=== PATIENT | male | born 1990 | race Caucasian/White ===

== ENCOUNTER 2019-06-18 00:30 | Inpatient (IN) | payer MEDICAID, OTHER ==
--- NOTE | 2019-06-18 01:08 | ED ---
Psych HPI - General Chief Complaint: Psychiatric Symptoms Stated Complaint: Mental Health Time Seen by Provider: 06/18/19 01:07 Source: patient, RN notes reviewed, old records reviewed Mode of arrival: ambulatory - History of Present Illness Initial Comments: This is a 29-year-old male DF for psychiatric evaluation patient's going to difficult time recently new to the area and presented for psychiatric evaluation today. Patient was cutting secondary severe depression. Does admit to actual acute psychiatric illness patient states he is off medication as he just moved here and is unable to see DrMallory secondary to coronavirus, history of psychiatric illness but does not take psychiatric medications currently MD Complaint: suicidal ideation, feels depressed -: unknown Associated Psychiatric Symptoms: depression, suicidal ideation, racing thoughts History of same: Yes Quality: intermittent, getting worse Improves With: medication, therapy Worsens With: none Context: not taking psychiatric medications Associated Symptoms: denies other symptoms Treatments Prior to Arrival: placed on mental health hold If Self Harm: admits thoughts of self harm - Related Data Previous Rx's Medication Instructions Recorded Albuterol Inhaler [Ventolin Hfa 2 puff INHALATION RT-QID PRN puff 06/22/19 Inhaler] Paliperidone [Invega] 3 mg PO DAILY #30 tab.er.24 06/22/19 Topiramate [Topamax] 25 mg PO DAILY #30 tab 06/22/19 Allergies Allergy/AdvReac Type Severity Reaction Status Date / Time bee venom protein (honey bee) Allergy Anaphylaxis Verified 06/18/19 08:30 olive extract Allergy Anaphylaxis Verified 06/18/19 08:30 mirtazapine [From Remeron] AdvReac Mild Unknown Verified 06/18/19 08:30 olanzapine [From Zyprexa] AdvReac Mild Unknown Verified 06/18/19 08:30 lithium AdvReac Hallucinati Verified 06/18/19 08:30 ons prednisone AdvReac Unknown Verified 06/18/19 08:30 Review of Systems ROS Statement: Those systems with pertinent positive or pertinent negative responses have been documented in the HPI. ROS Other: All systems not noted in ROS Statement are negative. Past Medical History Past Medical History: Asthma History of Any Multi-Drug Resistant Organisms: None Reported Past Surgical History: Appendectomy Smoking Status: Never smoker Past Alcohol Use History: None Reported Past Drug Use History: None Reported General Exam Limitations: no limitations General appearance: alert, in no apparent distress Head exam: Present: atraumatic, normocephalic, normal inspection Eye exam: Present: normal appearance, PERRL, EOMI. Absent: scleral icterus, conjunctival injection, periorbital swelling ENT exam: Present: normal exam, mucous membranes moist Neck exam: Present: normal inspection. Absent: tenderness, meningismus, lymphadenopathy Respiratory exam: Present: normal lung sounds bilaterally. Absent: respiratory distress, wheezes, rales, rhonchi, stridor Cardiovascular Exam: Present: regular rate, normal rhythm, normal heart sounds. Absent: systolic murmur, diastolic murmur, rubs, gallop, clicks GI/Abdominal exam: Present: soft, normal bowel sounds. Absent: distended, tenderness, guarding, rebound, rigid Extremities exam: Present: normal inspection, full ROM, normal capillary refill. Absent: tenderness, pedal edema, joint swelling, calf tenderness Back exam: Present: normal inspection Neurological exam: Present: alert, oriented X3, CN II-XII intact Psychiatric exam: Present: normal affect, normal mood Skin exam: Present: warm, dry, intact, normal color. Absent: rash Course Vital Signs 06/18/19 06/18/19 00:35 07:41 Temperature 97.8 F Pulse Rate 114 H 86 Respiratory 20 16 Rate Blood Pressure 157/113 137/83 O2 Sat by Pulse 99 99 Oximetry - Reevaluation(s) Reevaluation #1: Medical record is reviewed Patient was made medically clear for psychiatric evaluation Medical Decision Making - Medical Decision Making 29 male to the ER seen and evaluated by psychiatry here in the ER. Patient does have a consistent a changing story but does have underlying psychiatric illness will be admitted for psychiatric evaluation and treatment - Lab Data Result diagrams: 06/19/19 06:29 06/19/19 06:29 Lab Results 06/18/19 Range/Units 00:52 Urine Opiates Screen Not Detected (NotDetected) Ur Oxycodone Screen Not Detected (NotDetected) Urine Methadone Screen Not Detected (NotDetected) Ur Propoxyphene Screen Not Detected (NotDetected) Ur Barbiturates Screen Not Detected (NotDetected) U Tricyclic Antidepress Detected H (NotDetected) Ur Phencyclidine Scrn Not Detected (NotDetected) Ur Amphetamines Screen Not Detected (NotDetected) U Methamphetamines Scrn Detected H (NotDetected) U Benzodiazepines Scrn Not Detected (NotDetected) Urine Cocaine Screen Not Detected (NotDetected) U Marijuana (THC) Screen Not Detected (NotDetected) Disposition Clinical Impression: Depression, Suicidal ideation Disposition: ADMITTED IP TO [facility] Condition: Good Is patient prescribed a controlled substance at d/c from ED?: No
[2019-06-18 01:26] LABS: Amphetamine Screen,Urine Not Detected (NotDetected); Barbiturate Screen,Urine Not Detected (NotDetected); Benzodiazepines Screen,Urine Not Detected (NotDetected); Cocaine Screen,Urine Not Detected (NotDetected); Methadone Screen, Urine Not Detected (NotDetected); Opiate Screen,Urine Not Detected (NotDetected); Oxycodone Screen, Urine Not Detected (NotDetected); Phencyclidine Screen,Urine Not Detected (NotDetected); Tricyclic Antidepressant,Urine Detected (NotDetected); Urn Cannabinoid Scrn Not Detected (NotDetected)
[2019-06-18] MEDS ORDERED: ZIPRASIDONE 20 MG VIAL IM PRN (07:44)
[2019-06-18] MEDS ORDERED: MAG HYDROX/AL HYDROX/SIMETH 30 ML CUP PO PRN (07:44)
[2019-06-18] MEDS ORDERED: MAGNESIUM HYDROXIDE 2,400 MG/10 ML CUP PO PRN (07:44)
--- NOTE | 2019-06-18 12:17 | P.HP ---
Psychiatric H&P - . H&P Date: 06/18/19 History & Physical: Allergies Allergy/AdvReac Type Severity Reaction Status Date / Time bee venom protein (honey bee) Allergy Anaphylaxis Verified 06/18/19 08:30 olive extract Allergy Anaphylaxis Verified 06/18/19 08:30 mirtazapine From Remeron AdvReac Mild Unknown Verified 06/18/19 08:30 olanzapine From Zyprexa AdvReac Mild Unknown Verified 06/18/19 08:30 lithium AdvReac Hallucinati Verified 06/18/19 08:30 ons prednisone AdvReac Unknown Verified 06/18/19 08:30 Vital Signs Temp 97.1 F L 06/18/19 08:35 Pulse 96 06/18/19 08:35 Resp 15 06/18/19 08:35 BP 121/96 06/18/19 08:35 Pulse Ox 97 06/18/19 08:35 Intake & Output 06/17/19 06/18/19 06/18/19 18:59 06:59 18:59 Weight 79.379 kg 79.39 kg Laboratory Last Values Urine Opiates Screen Not Detected (NotDetected) 06/18/19 00:52 Ur Oxycodone Screen Not Detected (NotDetected) 06/18/19 00:52 Urine Methadone Screen Not Detected (NotDetected) 06/18/19 00:52 Ur Propoxyphene Screen Not Detected (NotDetected) 06/18/19 00:52 Ur Barbiturates Screen Not Detected (NotDetected) 06/18/19 00:52 U Tricyclic Antidepress Detected (NotDetected) H 06/18/19 00:52 Ur Phencyclidine Scrn Not Detected (NotDetected) 06/18/19 00:52 Ur Amphetamines Screen Not Detected (NotDetected) 06/18/19 00:52 U Methamphetamines Scrn Detected (NotDetected) H 06/18/19 00:52 U Benzodiazepines Scrn Not Detected (NotDetected) 06/18/19 00:52 Urine Cocaine Screen Not Detected (NotDetected) 06/18/19 00:52 U Marijuana (THC) Screen Not Detected (NotDetected) 06/18/19 00:52 06/18/19 12:09 IDENTIFYING DATA: Patient is a 29-year-old male with a history of chronic psychiatric illness and currently living with a friend in the area HPI: Patient presented to the hospital, bringing himself in after feeling depressed and cutting himself. Patient reported to the ER staff that he has not been taking his medications and was trying to get in to see a psychiatrist however could not due to the hines virus. Patient was admitted to the mental health unit and seen this morning. Patient appears to be concrete and has poor hygiene. He states that he's been feeling depressed since "my granddaughter " and states that she at 5 years old. He claims he does not know how she and when asked about his children and he states that "I have 30-40 kids I don't know". He was bizarre and delusional and spoke about living with a friend who is a psychiatrist who is also a truck driving instructor that can't go to [place]. He states that his mood has been depressed however is feeling better now. 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 Patient was inappropriate at times and illogical. He states that cutting is "the only coping mechanism". He states that he did have suicidal thoughts before coming in the hospital however denies them at this point. He states that he has poor sleep and has heard voices in the past of his mother saying negative things to him. Patient denies any suicidal or homicidal ideations intent or plan. At this time patient denies any auditory or visual hallucinations. Patient denies any flight of ideas racing thoughts and increased in goal directed behavior. Patient denies using any recreational drugs marijuana alcohol or cigarettes. PAST PSYCHIATRIC HISTORY: Patient states that he has a history of schizophrenia and states that he's been "in the [employer] [facility]". He claims that he has PTSD as well. He denies any outpatient psychiatric follow- up. He claims of Bentyl on lithium in the past and several different antipsychotics were cannot list them. He claims that he has attempted suicide "a few times". PMH: Asthma ALLERGIES: as per EMR CHEMICAL DEPENDENCY HISTORY: as per HPI FAMILY PSYCHIATRIC/SUBSTANCE USE HISTORY: States that his uncle has schizophrenia and his mother has some form of mental illness. SOCIAL HISTORY: Patient was born and raised in [place] "all over" and states that he recently moved to [place]. He claims that he is living with a friend in the area. He states that he did not attend school and has many children. MENTAL STATUS EXAM: General Appearance: Patient appears to be stated age is alert, directable, and bizarre/delusional. Patient appears to have poor hygiene and grooming. Multiple superficial cuts over his forearms and legs and neck. Behavior: Patient is seated without any agitated behavior. Bizarre Speech: Patient's speech is fluent and nonpressured. Balm and monotone. Mood/Affect: Patient reports their mood is depressed, affect is congruent with a blunted affect. Suicidality/Homicidality: Patient denies having any homicidal ideation intent or plan. Denies any suicidal ideations intent or plan Perceptions: Patient denies any visual hallucinations and denies any auditory hallucinations Though content/process: Balm, delusional, bizarre. Rambles. Memory and concentration: AOX3, grossly intact for the purposes of this session. Can spell "WORLD" backwards Judgment and insight: poor STRENGTHS/WEAKNESSES: strength is that patient is resilient. Weakness is that patient has poor judgment INTELLECT: average IMPRESSIONS: Schizoaffective disorder, depressive type PLAN: -Patient is admitted under voluntary status to MHU for stabilization of psychiatric symptoms and safety. Patient signed adult voluntary form and is placed in patient's chart. -Medications : Will start patient on paliperidone 3 mg daily for mood stabilization/psychosis. We'll also start trazodone 50 mg daily at bedtime for insomnia/mood. -Ativan and Geodon PRN for agitation/aggression -Patient was informed of the risks, benefits and side effects of the medication and patient verbally consented to taking the medications. -Internal Medicine consult to perform medical evaluation and physical. -NRT -not need as patient does not smoke. -SW on board for discharge planning. Encourage patient to participate in groups to work on coping skills. Will attempt to gather more information about patient's social history and further collateral.
[2019-06-18] MEDS: PALIPERIDONE 3 MG TAB.ER.24 PO SCH (12:29)
[2019-06-18] MEDS ORDERED: ALBUTEROL HFA INHALER INHALATION PRN (14:02)
--- NOTE | 2019-06-18 14:02 | P.MDCNMH ---
History of Present Illness H&P Date: 06/18/19 Chief Complaint: Depression 29-year-old male presented to the hospital because of increasingly feeling depressed and cutting himself. He has not been taking his medications and was trying to get in to see a psychiatrist however could not due to the hines virus. Because of feeling depressed he has been cutting his arms causing linear wounds. Patient states that he has asthma and uses albuterol inhaler when he feels short of breath. He states that his asthma flares up when he overexerts himself. He currently denied having shortness of breath. No fevers or chills. No chest pain. No recent illness. No cough. Review of Systems Complete review of system performed, pertinent positives per HPI, otherwise negative Past Medical History Past Medical History: Asthma History of Any Multi-Drug Resistant Organisms: None Reported Past Surgical History: Appendectomy Smoking Status: Never smoker Medications and Allergies Allergies Allergy/AdvReac Type Severity Reaction Status Date / Time bee venom protein (honey bee) Allergy Anaphylaxis Verified 06/18/19 08:30 olive extract Allergy Anaphylaxis Verified 06/18/19 08:30 mirtazapine [From Remeron] AdvReac Mild Unknown Verified 06/18/19 08:30 olanzapine [From Zyprexa] AdvReac Mild Unknown Verified 06/18/19 08:30 lithium AdvReac Hallucinati Verified 06/18/19 08:30 ons prednisone AdvReac Unknown Verified 06/18/19 08:30 Physical Exam Vitals: Vital Signs Temp Pulse Pulse Resp BP BP Pulse Ox 06/18/19 08:35 97.1 F L 96 15 121/96 97 06/18/19 07:41 86 16 137/83 99 06/18/19 00:35 97.8 F 114 H 20 157/113 99 Intake and Output 06/17/19 06/18/19 06/18/19 22:59 06:59 14:59 Other: Weight 79.379 kg 79.39 kg Constitutional: No acute distress, conversant, pleasant Eyes:Anicteric sclerae, moist conjunctiva, no lid-lag, PERRLA, ENMT: Oropharynx clear, no erythema, exudates Neck: Supple, FROM, no masses, or JVD, No carotid bruits, No thyromegaly Lungs: Clear to auscultation, Clear to percussion, Normal respiratory effort, no accessory muscle use Cardiovascular: Heart regular in rate and rhythm, No murmurs, gallops, or rubs, No peripheral edema Abdominal: Soft, Nontender, no guarding, rebound or rigidity, Normoactive bowel sounds, No hepatomegaly, No splenomegaly, No palpable mass Skin: Normal temperature, tone, texture, turgor, no induration, No subcutaneous nodules, No rash, lesions, No ulcers Extremities: No digital cyanosis, No clubbing, Pedal pulses intact and symmetrical, Radial pulses intact and symmetrical, No calf tenderness Psychiatric: Alert and oriented to person, place and time, appropriate affect, intact judgement Neuro: Muscles Strength 5/5 in all 4 extremities, Sensation to light touch grossly present throughout, Cranial nerves II-XII grossly intact, no focal sensory deficits Cranial Nerve Examination - Cranial Nerves Cranial Nerve II- Optic: Intact Cranial Nerve III- Oculomotor: Intact Cranial Nerve IV- Trochlear: Intact Cranial Nerve V- Trigeminal: Intact Cranial Nerve - Abducens: Intact Cranial Nerve VII- Facial: Intact Cranial Nerve VIII- Auditory: Intact Cranial Nerve IX- Glossopharyngeal: Intact Cranial Nerve X- Vagus: Intact Cranial Nerve XI- Accessory: Intact Cranial Nerve XII- Hypoglossal: Intact Results Labs: Abnormal Lab Results - Last 24 Hours (Table) 06/18/19 Range/Units 00:52 U Tricyclic Antidepress Detected H (NotDetected) U Methamphetamines Scrn Detected H (NotDetected) Assessment and Plan Plan: Asthma Currently in remission Albuterol when necessary Major depression with self mutilation Management per psychiatry Health maintenance Check TSH, lipid profile, CBC, CMP
[2019-06-18] MEDS: traZODone HCL 50 MG TAB PO SCH (22:07)
[2019-06-19 06:37] LABS: Glucose,Whole Blood 98 mg/dL (75-99)
[2019-06-19 06:42] LABS: Basophils # (A) 0.1 k/uL (0-0.2); Basophils % (A) 1 %; Eosinophils # (A) 0.2 k/uL (0-0.7); Eosinophils % (A) 2 %; HCT 50.3 % (39.0-53.0); HGB 16.3 gm/dL (13.0-17.5); Lymphocytes # (A) 3.3 k/uL (1.0-4.8); Lymphocytes % (A) 27 %; MCH 28.3 pg (25.0-35.0); MCHC 32.5 g/dL (31.0-37.0); MCV 86.9 fL (80.0-100.0); Mean Platelet Volume 7.6; Monocytes # (A) 0.6 k/uL (0-1.0); Monocytes % (A) 5 %; Neutrophils # (A) 7.8 k/uL (1.3-7.7); Neutrophils % (A) 64 %; Platelet Count 312 k/uL (150-450); RBC 5.78 m/uL (4.30-5.90); RDW 12.7 % (11.5-15.5); WBC 12.2 k/uL (3.8-10.6)
[2019-06-19 07:06] LABS: ALT 33 U/L (4-49); AST 25 U/L (17-59); African American GFR (CKD) >90 (>60 ml/min/1.73 sqM); Albumin 4.7 g/dL (3.5-5.0); Alkaline Phosphatase 74 U/L (38-126); Anion Gap 11 mmol/L; Blood Urea Nitrogen 18 mg/dL (9-20); Calcium 9.8 mg/dL (8.4-10.2); Carbon Dioxide 29 mmol/L (22-30); Chloride 100 mmol/L (98-107); Cholesterol 226 mg/dL (<200); Glucose 99 mg/dL (74-99); HDL Cholesterol 36 mg/dL (40-60); LDL Cholesterol,Calculated 131 mg/dL (0-99); Non-African American GFR(CKD) >90 (>60 ml/min/1.73 sqM); Potassium 4.2 mmol/L (3.5-5.1); Sodium 140 mmol/L (137-145); Total Bilirubin 0.9 mg/dL (0.2-1.3); Total Protein 7.9 g/dL (6.3-8.2); Triglycerides 294 mg/dL (<150)
--- NOTE | 2019-06-19 08:03 | CT ---
EXAMINATION TYPE: CT brain wo con DATE OF EXAM: 06/19/2019 COMPARISON: NONE HISTORY: Fall with injury today CT DLP: 1108.4 mGycm Automated exposure control for dose reduction was used. FINDINGS: Central structures are midline. There is no evidence of hydrocephalus. No acute focal lesion, mass ef fect IMPRESSION: NORMAL CT SCAN OF THE BRAIN.
[2019-06-19] MEDS: ACETAMINOPHEN TAB 325 MG TAB PO PRN (08:11)
[2019-06-19] MEDS: PALIPERIDONE 3 MG TAB.ER.24 PO SCH (08:11)
[2019-06-19] MEDS ORDERED: hydrOXYzine PAMOATE 25 MG CAP PO PRN (11:15)
--- NOTE | 2019-06-19 11:20 | P.PN ---
Progress Note - Text Progress Note Date: 06/19/19 Interval history: Patient was seen playing cards during activities group and was directable and agreeable to speak with short story writer. 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 He states that his mood has been getting better and he feels less depressed today. He also states that he is been going to group and trying to socialize. He stated that he felt dizzy this morning after getting his blood drawn and had a fall and hit his head. Computed tomography scan report claims that there is no acute hemorrhage or changes. He states that he slept better last night. At this time patient denies any suicidal or homicidal ideations intent or plan. Denies any Auditory or visual hallucinations. Patient denies any side effects from the medications and has been compliant with meds. Mental status exam: General Appearance: Patient appears to be stated age is alert, directable, and bizarre/delusional, mild likely improving. Patient appears to have improving hygiene and grooming. Multiple superficial cuts over his forearms and legs and neck. Behavior: Patient is seated without any agitated behavior. Bizarre at times. Speech: Patient's speech is fluent and nonpressured. [place] Mood/Affect: Patient reports their mood is mildly improving, affect is congruent with a constricted affect. Suicidality/Homicidality: Patient denies having any homicidal ideation intent or plan. Denies any suicidal ideations intent or plan Perceptions: Patient denies any visual hallucinations and denies any auditory hallucinations Though content/process: [place], delusional, more goal oriented today. Memory and concentration: AOX3, grossly intact for the purposes of this session. Judgment and insight: poor, mildly improving. Assessment/Plan: Continue with current diagnosis. Patient continues to meet criteria for inpatient psychiatric admission for symptom stabilization and safety.Patient will be maintained on current psychotropic medication regimen, added Vistaril 25 mg every 6 hours when necessary for anxiety this patient was complaining of anxiety at times and wanted to be restarted back on Vistaril. Monitor for medication compliance and for any psychotropic medication side effects. Will continue to monitor ongoing response to treatment. Encouraged participation in milieu. Will attempt to gather more information about patient's social history and further collateral.
--- NOTE | 2019-06-19 11:46 | P.PN ---
Progress Note - Text Progress Note Date: 06/19/19 Nursing staff reported that 5 minutes after blood draw this morning patient passed out and fell hitting the back of his head on the floor. He is currently doing well. He stated that he has history of seizures in the past where all of a sudden he feels weak and blacks out. He is not currently taking any seizure medication. He states he gets a seizure every 6 or 7 months. Plan: Order EEG Neurology consult
[2019-06-19] MEDS: traZODone HCL 50 MG TAB PO SCH (20:53)
[2019-06-20] MEDS: PALIPERIDONE 3 MG TAB.ER.24 PO SCH (08:19)
[2019-06-20 10:44] LABS: Hemoglobin A1C 4.6 % (4.0-6.0)
[2019-06-20] MEDS: ACETAMINOPHEN TAB 325 MG TAB PO PRN (12:13)
--- NOTE | 2019-06-20 13:06 | P.PN ---
Subjective Progress Note Date: 06/20/19 Principal diagnosis: Unspecified psychotic disorder, rule out bipolar disorder with psychotic features, rule out schizoaffective disorder, rule out delusional disorder, rule out schizophrenia I reviewed the medical record, interviewed the patient and discuss his treatment and treatment plan during team meeting. Also reviewed [facility]. Similar to the history provided to the admitting psychiatrist he gave an unbe lievable and fantastical history. He came to Hospital because he felt depressed and was having thoughts of suicide over the of his granddaughter and daughter. He expressed a belief that he has multiple children "possibly as many as 100." He has lived in every state and has visited every country of the world with the exception of [place]. He has been hospitalized "50 times" since the start of his mental illness at age 24. He talked about having been sent from [place] to a prison in [place] for several charges including murder, luring a minor and probation violation. He alleged that all charges were dropped. He alleged that he been in prison 60 times. After he left the prison in [facility] he moved to [place] where he decided to move to [facility] because he threw a dart and amenable to [facility] that landed on [facility]. During our interview he denied feeling depressed or having thoughts of or suicide. He talked about "hearing voicees inside my head" but denied experiencing hallucinations that were commanding, derogatory or making a running commentary on his thoughts and actions. He also denied side effects to current dose of Invega (6 mg daily). He slept tonight and is posed no management problem and had no manic episodes of behavioral dyscontrol. He attends therapeutic groups and is spend sleeping approximate 7 hours per night. Objective - Vital Signs Vital signs: Vital Signs Temp 97.8 F 06/20/19 06:47 Pulse 92 06/20/19 06:47 Resp 18 06/20/19 06:47 BP 128/60 06/20/19 06:47 Pulse Ox 96 06/20/19 06:47 Intake & Output 06/19/19 06/20/19 06/20/19 18:59 06:59 18:59 Weight 75.5 kg - Exam She was casually groomed pleasant and cooperative. He made eye contact and attended to interview. He had no distinguishing features or prominent physical abnormalities. He had scratches on his chest and arm. He had a bright facial expression. He showed no abnormality of psychomotor activity; he was not re stless, agitated or retarded. His speech was spontaneous with slight increase in rate but normal rhythm and volume. His affect was bright, stable and appropriate. He Was not labile or elated. He denied current suicidal ideation or wishes. He denied homicidal ideation. He denied feeling hopeless, helpless or worthless. He did not express clear ideas reference or paranoid ideation. He described multiple fragmented as well as organized delusional beliefs that had a grandiose theme. His thinking was abstract and associations were coherent and logical. He did not demonstrate clang associations. He denied hallucinations and did not appear to be responding to internal stimuli. - Labs CBC & Chem 7: 06/19/19 06:29 06/19/19 06:29 Assessment and Plan Assessment: He has multiple grandiose delusional beliefs and a slightly elevated mood but no agitation, marked irritability or euphoria. Although he presented with complaints of depression and suicidal ideation. Does not appear depressed and is denying suicidal ideation. Plan: Continue inpatient treatment due to the persistent psychotic symptoms. Safety precautions. Continue Invega 3 mg daily and titrated according to clinical response and tolerance, continue Desyrel 50 mg at bedtime, Vistaril 25 mg every 6 when necessary for anxiety and Ativan and/or Geodon when necessary for agitation or aggression. Encourage participation in therapeutic groups and activities. Evaluate clinical status response to treatment daily basis.
--- NOTE | 2019-06-20 15:52 | P.PN ---
Subjective Progress Note Date: 06/20/19 Principal diagnosis: neck pain Patient is a 29-year-old male with known asthma who has been admitted to the mental health unit secondary to depression. Patient seen and examined. He reports anterior neck pain that is worse with palpation or moving his neck. He reports that he experienced it on waking tonight. He also reports increased pain when attempting to swallow. He denies any throat pain. No postnasal drip, runny nose, stuffy nose, fevers, or cough. He reports he took Tylenol which helped with the headache he was having but did not help with his neck pain. He has not had issues with neck pain in the past. Objective - Vital Signs Vital signs: Vital Signs Temp 98.8 F 06/20/19 15: Pulse 110 H 06/20/19 15:22 Resp 16 06/20/19 15:22 BP 136/91 06/20/19 15:22 Pulse Ox 97 06/20/19 15:22 Intake & Output 06/19/19 06/20/19 06/20/19 18:59 06:59 18:59 Weight 75.5 kg - Exam General: non toxic, no distress, appears at stated age Neck: Pain to palpation of anterior neck bilaterally over sternocleidomastoids, no cervical lymphadenopathy, no difficulty with range of motion on flexion, extension, and rotation right and left, no thyroidomegaly Throat: No posterior nasal drip, no pharyngeal erythema, no tonsillar exudates Neuro: CN II-XI grossly intact, no focal neuro deficits, walking without difficulty Psych: Alert, oriented, appropriate affect - Labs CBC & Chem 7: 06/19/19 06:29 06/19/19 06:29 Assessment and Plan Assessment: Neck pain - Tylenol ineffective, try dose of Motrin -Urgent CT cervical spine to rule out possible fracture, or other problems -Neuro checks every 4 hours -We will monitor closely - notify [facility] immediately of any neurologic changes. Headache - suspect post concussive syndrome - Tylenol as needed - await neuro evaluation Syncopal event - likely vasovagal - await neuroconsult. I asked to see the patient has already on the unit examining another patient. Of note at the time of my physical evaluation of the patient I had not reviewed his electronic chart and I was not aware that he had a syncopal episode on 06/18 resulting in him striking the back of his head. CT head at that time was negative
[2019-06-20] MEDS: IBUPROFEN 400 MG TAB PO PRN (16:32)
--- NOTE | 2019-06-20 17:14 | CT ---
EXAMINATION TYPE: CT cervical spine wo con DATE OF EXAM: 06/20/2019 COMPARISON: NONE HISTORY: SYNCOPAL EPISODE WITH FALL AND STRUCK POSTERIOR HEAD AND NECK PAIN. CT DLP: 477 mGycm. Automated Exposure Control for Dose Reduction was Utilized. TECHNIQUE: CT scan of the cervical spine is obtained without contrast, axial images are obtained, sa gittal and coronal reformatted images are also reviewed. FINDINGS: Cervical spine is visualized in its entirety from C1 through upper thoracic levels, demonst rates satisfactory alignment without evidence of acute fracture or dislocation. Prevertebral soft ti ssue appears within normal limits. The C1-C2 articulation is within normal limits on the coronal tracie ges. Vertebral body heights and disc space heights are maintained. Spinal canal grossly preserved. Review of axial images shows no significant spinal canal stenosis or neural foraminal narrowing at an y cervical level. Thyroid gland is felt within normal limits. Visualized lung apices are clear. IMPRESSION: Unremarkable study.
[2019-06-20] MEDS: traZODone HCL 50 MG TAB PO SCH (20:51)
--- NOTE | 2019-06-20 22:47 | P.CNNES ---
History of Present Illness Consult date: 06/20/19 Requesting physician: Ramon Sanchez Reason for Consult: Seizure History of Present Illness: Patient is a 29-year-old male who was seen in the mental health unit for seizure disorder. Patient is admitted to mental health unit because of suicidal ideation. Patient had a blackout spell while he was in the mental health unit. Patient states that he had a blood draw at 6 AM. About half an hour later, he was standing up on the counter, when he apparently blacked out and the next thing he remembers is the staff and people around him and checking his eyes with flashlight. Patient does not remember any warning sign, although he had mentioned to the staff at the nursing desk that he was feeling dizzy just before he blacked out. Patient underwent computed tomography scan of the head which was normal. CT of the cervical spine was unremarkable. Urine drug screen positive for tricyclics and methamphetamine. Patient states that he has history of seizure disorder for the last 7 years. He was not placed on seizure medication until 3 years ago. He took seizure medication for a year but because of some family issues, he quit taking it 2 years ago. He does not remember name of the seizure medication but it was twice a day. At present he is not on any seizure medications. Patient states that he gets grand mal seizure, about once every 2-6 months. Usually he does not bite his tongue, may have done it very occasionally. He does grind his teeth. Patient also gets petit mal seizure, which he does not remember how often. Patient also gets blackout episodes, that started about a year after he started having seizure disorder. He gets those about once every 1-6 months. Patient denies any tobacco alcohol or drug use. Review of Systems Completely unremarkable. All 14 point review systems are reviewed. He does have depression, suicide ideation, also does cutting. Past Medical History Past Medical History: Asthma History of Any Multi-Drug Resistant Organisms: None Reported Past Surgical History: Appendectomy Smoking Status: Never smoker Medications and Allergies Allergies Allergy/AdvReac Type Severity Reaction Status Date / Time bee venom protein (honey bee) Allergy Anaphylaxis Verified 06/18/19 08:30 olive extract Allergy Anaphylaxis Verified 06/18/19 08:30 mirtazapine [From Remeron] AdvReac Mild Unknown Verified 06/18/19 08:30 olanzapine [From Zyprexa] AdvReac Mild Unknown Verified 06/18/19 08:30 lithium AdvReac Hallucinati Verified 06/18/19 08:30 ons prednisone AdvReac Unknown Verified 06/18/19 08:30 Physical Examination - Vital Signs Vital Signs: Vital Signs Temp Pulse Pulse Resp BP BP Pulse Ox 06/20/19 21:00 99.4 F 06/20/19 18:13 98.2 F 06/20/19 15:22 98.8 F 110 H 16 136/91 97 06/20/19 13:23 99.6 F 06/20/19 06:47 97.8 F 92 18 128/60 96 On examination patient is a young male, in no distress. Patient is alert and awake oriented to time place and person. Speech and language functions are normal. Attention and concentration fund of knowledge is adequate. On cranial nerve examination pupils are round and reactive to light. Visual motley are full, extraocular muscles are intact. Face is symmetric, tongue protrudes the midline. Palatal elevation and sensation normal. Hearing and shoulder shrug normal. On muscle strength testing there is no pronator drift and the strength is normal in arms and legs distally and proximally. Reflexes are 2+ in the arms, 3 at the knees, 2 at the ankles and plantars downgoing. Sensory touch is equal. No ataxia for [id number] testing. Tone and bulk of muscles and gait normal. No carotid bruit or murmur, peripheral pulses present. Chest is clear. Abdomen soft nontender. Results - Laboratory Findings CBC and BMP: 06/19/19 06:29 06/19/19 06:29 Abnormal Lab Findings: Abnormal Labs 06/18/19 06/19/19 06/19/19 00:52 06:29 06:29 WBC 12.2 H Neutrophils # 7.8 H Triglycerides 294 H Cholesterol 226 H LDL Cholesterol, Calc 131 H HDL Cholesterol 36 L U Tricyclic Antidepress Detected H U Methamphetamines Scrn Detected H Assessment and Plan Assessment: * 29-year-old male with 7 year history of seizure disorder, and blackout spells, currently not on any seizure medication. Patient had a blackout spell versus seizure while in the hospital. * Depression, suicidal ideation. Plan: * Patient's EEG was performed today, which is normal. * Patient has history of schizoaffective disorder, and possible seizure disorder. Patient could be a good candidate for treatment with Lamictal or Topamax, both of which are also a mood stabilizer, as well as a broad-spectrum antiepileptic agent. Keppra can produce behavioral issues. * Patient was informed of [place] state law of no driving unless seizure free for 6 months, operating dangerous machinery, climbing ladders or unsupervised swimming.
--- NOTE | 2019-06-20 23:24 | EEG ---
ELECTROENCEPHALOGRAM REPORT DATE OF SERVICE: 06/20/2019 PREAMBLE: This is a 29-year-old male with history of seizure disorder. EEG FINDINGS: This is a 21 channel routine EEG recording utilizing 10-20 international system with bipolar and referential montages. The background consists of well developed, well regulated, moderate voltage activity in 9-10 Hz alpha. Background is posterior dominant and reactive to eye opening and closing. Photic driving response was seen with some flash frequencies. Mild drowsiness was seen with appearance of bilaterally symmetric theta frequency rhythm. Deeper stages of sleep were not seen. No focal or generalized epileptiform activity was seen. EKG rhythm lead revealed no obvious arrhythmia. IMPRESSION: This is a normal awake and drowsy EEG. No epileptiform activity was seen. A normal EEG does not rule out seizure disorder. If your suspicion for seizure disorder is high, suggest a prolonged, sleep-deprived or an ambulatory EEG. MMODL / IJN: [id number] / MTDD
[2019-06-20] MEDS: LORazepam 1 MG TAB PO PRN (23:53)
[2019-06-21] MEDS: PALIPERIDONE 3 MG TAB.ER.24 PO SCH (08:02)
[2019-06-21] MEDS: IBUPROFEN 400 MG TAB PO PRN (09:03)
[2019-06-21] MEDS: TOPIRAMATE 25 MG TAB PO SCH (09:03)
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
--- NOTE | 2019-06-21 13:26 | P.PN ---
Subjective Progress Note Date: 06/21/19 Patient offers no complaints. No seizures. Objective - Vital Signs Vital signs: Vital Signs Temp 97.6 F 06/21/19 06:44 Pulse 91 06/21/19 06:44 Resp 16 06/21/19 06:44 BP 133/83 06/21/19 06:44 Pulse Ox 95 06/21/19 06:44 - Exam Nonfocal. - Labs CBC & Chem 7: 06/19/19 06:29 06/19/19 06:29 Assessment and Plan Assessment: * 29-year-old male with 7 year history of seizure disorder, and blackout spells, currently not on any seizure medication. Patient had a blackout spell versus seizure while in the hospital. * Depression, suicidal ideation. * Hyperlipidemia Plan: * Patient's EEG was normal. Patient has been started on Topamax 25 mg daily. The dose can be increased weekly by 25 mg up to 50 mg twice a day. Then can be increased by 50 mg weekly to 100 mg twice a day. Patient needs to be aware of possible ocular, renal and cognitive side effects. Patient states that he was on Topamax in the past, can recall this medication name. * Patient also gets black out spells. I would suggest outpatient tilt table test to rule out vasovagal syncope or other type of syncope. * Patient was informed of [place] state law of no driving unless seizure free for 6 months, operating dangerous machinery, climbing ladders or unsupervised swimming. * Neurologically clear. Neurology will sign off. Please call neurology if any further concerns.
[2019-06-21] MEDS: LORazepam 1 MG TAB PO PRN (21:02)
[2019-06-21] MEDS: traZODone HCL 50 MG TAB PO SCH (21:02)
[2019-06-21] MEDS: ACETAMINOPHEN TAB 325 MG TAB PO PRN (21:03)
[2019-06-22 06:38] VITALS: BP 101/57; PULSE 75; RESP 14; TEMP 97.9
[2019-06-22] MEDS: TOPIRAMATE 25 MG TAB PO SCH (08:05)
[2019-06-22] MEDS: PALIPERIDONE 3 MG TAB.ER.24 PO SCH (08:05)
[2019-06-22] MEDS: IBUPROFEN 400 MG TAB PO PRN (12:29)
--- NOTE | 2019-06-22 12:45 | P.DS ---
Providers Date of admission: 06/18/19 07:26 Attending physician: Freddie Lyon MD Consults: 06/18/19 07:44 Consult Physician Routine Consulting Provider: Dennis Motta Consult Reason/Comments: Medical Management Do you want consulting provider notified?: Yes 06/19/19 11:41 Consult Physician Routine Consulting Provider: Imani Del Real Reason/Comments: seizure Do you want consulting provider notified?: Yes Primary care physician: Stated None - Discharge Diagnosis(es) (1) Suicidal ideation Current Visit: Yes Status: Resolved Priority: Low (2) Depression Current Visit: Yes Status: Acute Priority: Low (3) Seizure disorder Current Visit: Yes Status: Chronic Priority: Low Hospital Course: He is a 29-year-old male who has history of chronic psychiatric illness who presented voluntarily to the psychiatric unit with complaints of depression and suicidal ideation. He complained to the ER staff that he had not been taking his medications and was trying to get into see a psychiatrist but could not because of the pandemic. He complained that he's been feeling depressed since his "granddaughter diet", his "daughter ", his ex-girlfriend committed suicide and he has been unemployed due to the pandemic. He made several claims during this hospitalization that were difficult to believe. For example he claims that he had a granddaughter who when she was 3 years old. That he has 40-50 children, that he's been in the hospital "1000 times", that he has lived in every state and is visited every kind she was enrolled (with the exception of [facility]). He was cutting himself on the arms, legs and chest prior to admission. His UA was positive for tricyclics and methamphetamine. He reported a history of schizophrenia and multiple psychiatric hospitalizations. However on admission he denied she was psychotic symptoms as auditory, visual or olfactory hallucinations, ideas reference, thought insertion, thought broadcasting or thought control. He denied experiencing elevated mood or irritability consistent with osorio or hypomania. He did not demonstrate flight of ideas, racing thoughts or increasing goal directed behavior. We admitted him to the psychiatric unit under the care of this hand sign writer. We provided a comprehensive bile psychosocial assessment. The customer care voice consultant candy separator hard completed initial physical exam and medical history and diagnosed a history of asthma. On the second day of admission he experienced a fall hitting his head on the floor. He told the consulting neurologist that he has a history of seizures where he was suddenly feel weak and "blackout". He had a comprehensive neurological evaluation by the neurologist that included a computed tomography scan and an EEG. The computed tomography scan was unremarkable. He had a normal awake and drowsy EEG. We treated his psychiatric complaints with Invega 3 mg daily. We also started Topamax for the treatment of the reported seizure disorder. He experienced no side effects to Invega or the initial dose of Topamax. The neurologist recommended titration of the Topamax to 50 mg twice a day. His mood rapidly improved. He attended therapeutic groups and activities. He posed no management problem and had no episodes of behavioral dyscontrol. Time of discharge she presented as a casually groomed 29-year-old male who was pleasant on approach. He made eye contact and attended to interview. He had no distinguishing features or prominent physical abnormalities. He had a bright facial expression. He was alert and oriented to person, place and time. He had no abnormal psychomotor activity. His speech was spontaneous with normal rate, rhythm and volume. His affect was bright, stable and appropriate. He denied suicidal ideation, wishes or homicidal ideation. He denied feeling hopeless, helpless or worthless. He did not express ideas reference, paranoid ideation, magical ideation or delusions. Her thinking was abstract and his associations were coherent, logical and goal directed. He denied hallucinations and did not appear to responding to internal stimuli. Patient Condition at Discharge: Good Plan - Discharge Summary Discharge Rx Participant: No New Discharge Prescriptions: New Paliperidone [Invega] 3 mg PO DAILY #30 tab.er.24 Topiramate [Topamax] 25 mg PO DAILY #30 tab Albuterol Inhaler [Ventolin Hfa Inhaler] 2 puff INHALATION RT-QID PRN puff PRN Reason: Shortness Of Breath Or Wheezing Discharge Medication List Albuterol Inhaler [Ventolin Hfa Inhaler] 2 puff INHALATION RT-QID PRN puff 06/22/19 [Rx] Paliperidone [Invega] 3 mg PO DAILY #30 tab.er.24 06/22/19 [Rx] Topiramate [Topamax] 25 mg PO DAILY #30 tab 06/22/19 [Rx] Follow up Appointment(s)/Referral(s): None,Stated [Primary Care Provider] - 1-2 days Activity/Diet/Wound Care/Special Instructions: Activity and diet as tolerated. Avoid the use of street drugs and alcohol. Take all medications as prescribed. When you are in need of refills on your medications please contact your medical provider and/or outpatient psychiatrist to have this done. Please go to scheduled outpatient appointment for aftercare treatment. If symptoms return or become worse, call the crisis line at and/or go to the nearest emergency room for evaluation. Discharge Disposition: HOME SELF-CARE
== END 2019-06-22 13:45 | disposition home or self-care (01) | DRG 885 ==
LOC: EC 00:30 → 3MHU 07:26
PROVIDERS: ADMIT Psychiatry & Neurology Psychiatry; ATTEND Psychiatry & Neurology Psychiatry
DX: F32.3 Major depressive disorder, single episode, severe with psychotic features (principal); R45.851 Suicidal ideations; G40.409 Other generalized epilepsy and epileptic syndromes, not intractable, without status epilepticus; J45.909 Unspecified asthma, uncomplicated; Z91.128 Patient's intentional underdosing of medication regimen for other reason; F41.9 Anxiety disorder, unspecified; R51 Headache; M54.2 Cervicalgia; R55 Syncope and collapse; E78.5 Hyperlipidemia, unspecified; T48.6X6A Underdosing of antiasthmatics, initial encounter; T43.596A Underdosing of other antipsychotics and neuroleptics, initial encounter; T42.6X6A Underdosing of other antiepileptic and sedative-hypnotic drugs, initial encounter; Z91.5 Personal history of self-harm; Z79.899 Other long term (current) drug therapy; Z62.810 Personal history of physical and sexual abuse in childhood; Y63.6 Underdosing and nonadministration of necessary drug, medicament or biological substance; Z98.890 Other specified postprocedural states; Z91.030 Bee allergy status; Z88.8 Allergy status to other drugs, medicaments and biological substances; Z91.018 Allergy to other foods; Z81.8 Family history of other mental and behavioral disorders; W19.XXXA Unspecified fall, initial encounter
CPT/HCPCS: 70450; 72125; 80053; 80061; 80306; 82075; 83036; 84443; 85025; 93005; 95816; 99285